=== PATIENT | female | born 1940 | race Hispanic/Latino ===

== ENCOUNTER 2024-05-19 09:53 | Outpatient (RCR) | payer MEDICARE ==
[~2024-05-19 09:53] MED LIST: ALENDRONATE SOD70 MG PO; CALTRATE 600 W1 EACH PO; TIMOLOL EYE; TRILIPIX135 MG PO
== END 2024-06-11 ==
LOC: PT 09:53
PROVIDERS: ATTEND Physician Assistant
DX: M75.101 Unspecified rotator cuff tear or rupture of right shoulder, not specified as traumatic (principal); M62.81 Muscle weakness (generalized)

== ENCOUNTER 2024-06-14 13:46 | Outpatient (RCR) | payer MEDICARE | END 2024-07-12 | LOC: PT 13:46 | PROVIDERS: ATTEND Physician Assistant | DX: M75.101 Unspecified rotator cuff tear or rupture of right shoulder, not specified as traumatic (principal); M62.81 Muscle weakness (generalized) ==

== ENCOUNTER 2024-07-29 13:00 | Outpatient (RCR) | payer MEDICARE | END 2024-08-12 | LOC: PT 13:00 | PROVIDERS: ATTEND Physician Assistant | DX: M75.101 Unspecified rotator cuff tear or rupture of right shoulder, not specified as traumatic (principal); M62.81 Muscle weakness (generalized) ==